=== PATIENT | male | born 1970 | race Caucasian/White ===

== ENCOUNTER 2020-10-09 16:24 | Inpatient (IN) | payer SELFPAY ==
[~2020-10-09] VITALS: Ht 177.8 cm; Wt 93.0 kg
[2020-10-09 16:43] VITALS: BP 116/79
--- NOTE | 2020-10-09 18:10 | NUR ---
PT TAKEN TO BED 2.
--- NOTE | 2020-10-09 18:15 | NUR ---
49/M presents to ED with c/o cough and chest discomfort. Per patient he tested positive for covid 1 week ago and has had worsening cough, chest discomfort and c/o sob with exertion. Patient denies pain at this time but states pain occurs with cough. Patient reports intermittent fevers at home, reports taking Tylenol at home with mild relief. Patient denies being vaccinated against COVID-19. Denies nausea or vomiting. Denies urinary symptoms.
--- NOTE | 2020-10-09 18:30 | NUR ---
Labs and RSV and Novel swabs collected and handed to [facility]orer stores.
[2020-10-09] MEDS ORDERED: ACETAMINOPHEN EXTRA STRENGTH 500 MG TAB ONE (19:00)
[2020-10-09 19:03] LABS: BASOPHILS % (AUTO) 0.4 % (0.0-2.0); EOSINOPHILS # (AUTO) 0.1 K/uL (0-0.4); EOSINOPHILS % (AUTO) 1.2 % (0.0-4.0); LYMPHOCYTES # (AUTO) 0.8 K/uL (2.0-11.5); LYMPHOCYTES % (AUTO) 8.1 % (20.5-51.1); MEAN CORPUSCULAR HEMOGLOBIN 30 pg (27-31); MEAN CORPUSCULAR HGB CONC 34 g/dL (33-37); MEAN CORPUSCULAR VOLUME 86.2 fL (80-94); MONOCYTES # (AUTO) 1.1 K/uL (0.8-1.0); NEUTROPHILS # (AUTO) 7.8 K/uL (1.8-7.7); NEUTROPHILS % (AUTO) 79.3 % (42.2-75.2); PLATELET COUNT (AUTO) 490 K/uL (140-450); RED BLOOD CELL COUNT(AUTO) 4.75 MIL/uL (4.20-6.10); RED CELL DISTRIBUTION WIDTH 13.4 % (11.6-13.7); WHITE BLOOD COUNT (AUTO) 9.8 K/uL (4.8-10.8)
--- NOTE | 2020-10-09 19:04 | NUR ---
LIZY SPAULDING BROTHER [phone] CALLED REQUESTING UPDATE
[2020-10-09] MEDS ORDERED: ACETAMINOPHEN EXTRA STRENGTH 500 MG TAB PO ONE (19:05)
--- NOTE | 2020-10-09 19:16 | NUR ---
Nilsa swab collected and walked to lab.
[2020-10-09] MEDS ORDERED: DEXAMETHASONE 10 MG/ML VIAL IVP ONE (19:20)
--- NOTE | 2020-10-09 19:22 | NUR ---
Pt report given to Page. Transfer of care at this time.
[2020-10-09 19:23] LABS: ALBUMIN 2.8 g/dL (3.4-5.0); ANION GAP 12.7 (8-16); CARBON DIOXIDE 26.5 mmol/L (21-32); POTASSIUM 4.2 mmol/L (3.5-5.1); TOTAL BILIRUBIN 0.7 mg/dL (0.0-1.0)
[2020-10-09 19:24] LABS: PROTHROMBIN TIME 10.1 secs (10.8-13.4)
[2020-10-09 19:29] LABS: LACTATE DEHYDROGENASE 400 U/L (85-227)
[2020-10-09 19:41] LABS: FIBRINOGEN > 750 mg/dL (200-400)
[2020-10-09 19:48] LABS: C-REACTIVE PROTEIN QUANT 29.4 mg/dL (0.0-0.9)
[2020-10-09 19:55] LABS: D-DIMER 1860 ng/ml (0-400)
[2020-10-09] MEDS ORDERED: COMMUNICATION ORDER MC SCH (20:40)
[2020-10-09] MEDS ORDERED: ACETAMINOPHEN 325 MG TAB PO PRN (20:40)
[2020-10-09] MEDS ORDERED: ZOLPIDEM 5 MG TAB PO PRN (20:40)
[2020-10-09] MEDS ORDERED: ONDANSETRON 4 MG/2 ML VIAL IM/IVP PRN (20:40)
[2020-10-09] MEDS ORDERED: HYDROcodone/APAP 7.5/325 MG 1 TAB PO PRN (20:40)
[2020-10-09] MEDS ORDERED: ALBUTEROL HFA MDI 90 MCG/ACTUATION 8 GM INH PRN (20:40)
[2020-10-09] MEDS ORDERED: guaiFENesin DM 200/20 MG-10 ML 10 ML UDC PO PRN (20:40)
[2020-10-09] MEDS: NACL 0.9% 1,000 ML IV SCH (20:40)
[2020-10-09] MEDS ORDERED: DOCUSATE SODIUM 100 MG GELCAP PO PRN (20:40)
[2020-10-09] MEDS ORDERED: POTASSIUM CHLORIDE 10 MEQ TABER PO PRN (20:40)
[2020-10-09] MEDS ORDERED: NITROGLYCERIN 0.4 MG TAB SL PRN (20:45)
[2020-10-09] MEDS ORDERED: AZITHROMYCIN 250 MG TAB PO SCH (21:00)
--- NOTE | 2020-10-09 21:45 | NUR ---
PATIENTS SON CALLED AND WAS UPDATED REGARDING FATHERS CONDITION, AND ADMISSION.
[2020-10-09 21:47] LABS: CHOL/HDL RATIO 3.6 (1-4.5); FREE T4 (FREE THYROXINE) 1.16 ng/dL (0.76-1.46); MAGNESIUM 2.1 mg/dL (1.8-2.4); PHOSPHORUS 2.6 mg/dL (2.5-4.9); THYROID STIMULATING HORMONE 0.73 uIU/mL (0.34-3.74)
--- NOTE | 2020-10-09 22:00 | NUR ---
MEDICATED PER ADMITTING DR. ORDERS, TOLERATED WELL.
[2020-10-09] MEDS ORDERED: cefTRIAXone 1,000 MG VIAL ONE (22:38)
[2020-10-09] MEDS ORDERED: DEXAMETHASONE 10 MG/ML VIAL ONE (22:39)
[2020-10-09 23:11] LABS: APPEARANCE,URINE CLEAR (CLEAR); BILIRUBIN,URINE NEGATIVE (NEGATIVE); BLOOD, URINE NEGATIVE (NEGATIVE); COLOR,URINE YELLOW (YELLOW); LEUKOCYTE ESTERASE ,URINE NEGATIVE (NEGATIVE); NITRITE, URINE NEGATIVE (NEGATIVE); UGLUCOSE NEGATIVE (NEGATIVE)
[2020-10-09] MEDS: METOPROLOL 25 MG TAB PO SCH (23:11)
[2020-10-09 23:32] LABS: BARBITURATE, URINE NEGATIVE ng/ml (NEG <=200); BENZODIAZEPINE, URINE NEGATIVE ng/mL (NEG <=200); CANNABINOID, URINE NEGATIVE ng/mL (NEG <=50); COCAINE, URINE NEGATIVE ng/mL (NEG <=300); OPIATE, URINE NEGATIVE ng/mL (NEG <=2000); PHENCYCLIDINE SCREEN,URINE NEGATIVE ng/mL (NEG <=25)
--- NOTE | 2020-10-10 00:43 | NUR ---
Patient appears to be resting comfortably in bed. Vital Signs within normal limits. Respirations even and unlabored.
--- NOTE | 2020-10-10 02:00 | NUR ---
sons kept on calling , updated fathers condition, admission.
--- NOTE | 2020-10-10 06:02 | NUR ---
patient sleep well, and comfortable, sao2 maintained 96-98%, no respiratory distress noted, up and about.
[2020-10-10 06:33] LABS: ANION GAP 13.9 (8-16); BASOPHILS % (AUTO) 0.2 % (0.0-2.0); CARBON DIOXIDE 24.6 mmol/L (21-32); CREATININE 0.8 mg/dL (0.6-1.3); EOSINOPHILS % (AUTO) 0.2 % (0.0-4.0); HEMATOCRIT 37.6 % (36-52); HEMOGLOBIN 12.8 g/dL (12.0-18.0); LYMPHOCYTES # (AUTO) 0.8 K/uL (2.0-11.5); LYMPHOCYTES % (AUTO) 9.4 % (20.5-51.1); MEAN CORPUSCULAR HEMOGLOBIN 29 pg (27-31); MEAN CORPUSCULAR HGB CONC 34 g/dL (33-37); MEAN CORPUSCULAR VOLUME 86.1 fL (80-94); MONOCYTES # (AUTO) 0.3 K/uL (0.8-1.0); MONOCYTES % (AUTO) 3.3 % (1.7-9.3); NEUTROPHILS # (AUTO) 7.2 K/uL (1.8-7.7); NEUTROPHILS % (AUTO) 86.9 % (42.2-75.2); PLATELET COUNT (AUTO) 482 K/uL (140-450); POTASSIUM 4.5 mmol/L (3.5-5.1); RED BLOOD CELL COUNT(AUTO) 4.37 MIL/uL (4.20-6.10); RED CELL DISTRIBUTION WIDTH 13.3 % (11.6-13.7); WHITE BLOOD COUNT (AUTO) 8.3 K/uL (4.8-10.8)
--- NOTE | 2020-10-10 07:15 | NUR ---
report and continuation of care received from Eric celis.
--- NOTE | 2020-10-10 07:50 | NUR ---
Contreras leavitt in [facility] - 10/10/20 at 0813 by [email or web address] ADMINISTERED BENEDRYL ORDERED. PT BEGAN DRINKING ORAL CONTRAST AT 0750. LYNNETTE FROM CT NOTIFIED. WILL MONITOR CLOSELY.
--- NOTE | 2020-10-10 07:50 | NUR ---
PT OFF UNIT
--- NOTE | 2020-10-10 08:15 | NUR ---
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
--- NOTE | 2020-10-10 08:18 | NUR ---
ALICE AND CALLED REGARDING UPDATE [phone]
--- NOTE | 2020-10-10 09:30 | NUR ---
PT REQUESTED AND GIVEN URINAL.
--- NOTE | 2020-10-10 09:54 | NUR ---
PT GIVEN PITCHER OF WATER.
--- NOTE | 2020-10-10 09:58 | NUR ---
PATIENT HAS BEEN SCREENED AND CATEGORIZED MODERATE NUTRITION RISK. PATIENT WILL BE SEEN WITHIN 3-5 DAYS OF ADMISSION. 10/12/20 10/14/[address]
[2020-10-10] MEDS ORDERED: CRUSHER, PILL MC ONE ×2 (10:00→22:20)
[2020-10-10] MEDS: ECOTRIN 81 MG TABEC PO SCH (10:27)
[2020-10-10] MEDS: METOPROLOL 25 MG TAB PO SCH ×2 (10:28→21:00)
[2020-10-10] MEDS: ASCORBIC ACID 500 MG TAB PO SCH (10:29)
[2020-10-10] MEDS: PANTOPRAZOLE 40 MG TABEC PO SCH (10:29)
[2020-10-10] MEDS: ZINC SULF 220 MG CAP PO SCH (10:30)
[2020-10-10] MEDS: lisinopriL 5 MG TAB PO SCH (10:30)
--- NOTE | 2020-10-10 10:40 | NUR ---
PT AMBULATED TO BATHROOM STEADY GAIT.
[2020-10-10] MEDS ORDERED: remdesivir CLINICAL MONITORING 1 EA MISC MC PRN (12:00)
[2020-10-10] MEDS ORDERED: REMDESIVIR. 200 MG in NACL 0.9% 100 ML IV ONE (12:00)
--- NOTE | 2020-10-10 12:27 | NUR ---
PATIENT IN BED AWAKE AND ALERT, VSS, RR EVEN AND UNLABORED.
[2020-10-10] MEDS: NACL 0.9% 1,000 ML IV SCH (13:22)
--- NOTE | 2020-10-10 13:27 | NUR ---
PT REQUESTING TO LEAVE AMA. DR. PHILLIPS MADE AWARE. PRIMARY RN SPEAKING WITH PATIENT TO CONFIRM.
--- NOTE | 2020-10-10 13:54 | NUR ---
DR PHILLIPS AT BEDSIDE FOR EXPLAINING AMA. PT CHANGED MIND AND WILL STAY.
--- NOTE | 2020-10-10 13:54 | NUR ---
Contreras leavitt in ED - 10/10/[address] at [address] [facility] [address] PHILLIPS AT BEDSIDE SPEAKING WITH PATIENT. AMA FORM HAS BEEN SIGNED BY PATIENT.
--- NOTE | 2020-10-10 13:55 | NUR ---
Contreras leavitt in [facility] - 10/10/[address] at [address] [facility] PT AGREED TO STAY INPATIENT AFTER SPEAKING TO DR. PHILLIPS.
--- NOTE | 2020-10-10 14:20 | NUR ---
PATIENT GIVEN SNACK LUNCH.
--- NOTE | 2020-10-10 15:35 | NUR ---
SPOKE WITH DAUGHTER REGARDING PATIENT STATUS.
[2020-10-10] MEDS ORDERED: ATORVASTATIN 20 MG TAB PO SCH (17:00)
--- NOTE | 2020-10-10 20:40 | NUR ---
Patient will be admitted to care of DR. PHILLIPS. Admited to TELEMMETRY. Will go to room 117. Belongings list completed. Report to EDDA SAXENA.
--- NOTE | 2020-10-10 21:05 | NUR ---
ADMITTED TO [facility] A MALE PATIENT FROM ER UNDER THE CARE OF DR. PHILLIPS WITH THE CC: OF COUGH AND CHEST DISCOMFORT. DX: HYPOXIA , RESPIRATORY DISTRESS. AAOX4, NO ACUTE RESPIRATORY DISTRESS NOTED. RESPIRATION EVEN UNLABORED. MRSA NARES SCREENING DONE. ORIENTED TO ROOM, CALL LIGHT, STAFF. IVF STARTED. SCHEDULED MEDICATIONS GIVEN ORDERED. WILL CONTINUE TO MONITOR.
[2020-10-11 04:00] VITALS: BP 131/84
[2020-10-11] MEDS: NACL 0.9% 1,000 ML IV SCH (06:00)
[2020-10-11 07:43] LABS: BASOPHILS % (AUTO) 0.3 % (0.0-2.0); HEMATOCRIT 38.2 % (36-52); HEMOGLOBIN 12.9 g/dL (12.0-18.0); LYMPHOCYTES # (AUTO) 1.2 K/uL (2.0-11.5); LYMPHOCYTES % (AUTO) 7.9 % (20.5-51.1); MEAN CORPUSCULAR HEMOGLOBIN 29 pg (27-31); MEAN CORPUSCULAR HGB CONC 34 g/dL (33-37); MEAN CORPUSCULAR VOLUME 85.9 fL (80-94); MONOCYTES # (AUTO) 0.9 K/uL (0.8-1.0); NEUTROPHILS # (AUTO) 13.2 K/uL (1.8-7.7); NEUTROPHILS % (AUTO) 85.8 % (42.2-75.2); PLATELET COUNT (AUTO) 602 K/uL (140-450); RED BLOOD CELL COUNT(AUTO) 4.45 MIL/uL (4.20-6.10); RED CELL DISTRIBUTION WIDTH 13.3 % (11.6-13.7); WHITE BLOOD COUNT (AUTO) 15.3 K/uL (4.8-10.8)
[2020-10-11 07:47] LABS: ALBUMIN 2.4 g/dL (3.4-5.0); ANION GAP 12.1 (8-16); CREATININE 0.8 mg/dL (0.6-1.3); POTASSIUM 4.1 mmol/L (3.5-5.1); TOTAL BILIRUBIN 0.4 mg/dL (0.0-1.0)
[2020-10-11 08:00] VITALS: BP 120/78
[2020-10-11] MEDS: ECOTRIN 81 MG TABEC PO SCH (10:00)
[2020-10-11] MEDS: ASCORBIC ACID 500 MG TAB PO SCH (10:00)
[2020-10-11] MEDS: lisinopriL 5 MG TAB PO SCH (10:01)
[2020-10-11] MEDS: ZINC SULF 220 MG CAP PO SCH (10:01)
[2020-10-11] MEDS: METOPROLOL 25 MG TAB PO SCH (10:01)
[2020-10-11] MEDS: PANTOPRAZOLE 40 MG TABEC PO SCH (10:01)
[2020-10-11] MEDS ORDERED: ASPI-1205 PO (10:24)
[2020-10-11] MEDS ORDERED: AZIT250T3 PO (10:24)
[2020-10-11] MEDS ORDERED: DEC1 PO (10:24)
[2020-10-11] MEDS ORDERED: GUAI-646 PO (10:24)
[2020-10-11] MEDS ORDERED: CEPH250C16 PO (10:24)
--- NOTE | 2020-10-11 11:43 | NUR ---
Patient assessed for hypoxemia. currently on room air and oxygen level at 92 % on room air. when patient stood up and walked within the room, his oxygen level dropped to 84%. Notified Physician and patient needs oxygen at Discharge.
--- NOTE | 2020-10-11 11:44 | NUR ---
DC PLANNING: CM SPOKE WITH THE PATIENT BY PHONE REGARDING THE ORDER FOR HOME O2. PATIENT IS CURRENTLY UNINSURED AND UNEMPLOYED. HE STATES THAT HIS UNEMPLOYMENT CLAIM HAS BEEN SUBMITTED AND THAT HE WILL HAVE FUNDS NEXT WEEK BUT DOES NOT FEEL THAT HE WILL NEED O2 AT THIS TIME. CM OFFERED TO SET UP OXYGEN AND HAVE THE COMPANY CALL HIM NEXT WEEK BUT HE DECLINED. HE STATES THAT HE HAS BEEN GIVEN INSTRUCTIONS ON RESTING WHEN HE FEELS SHORT OF BREATH AND ALSO THAT HE HAS BEEN GIVEN EXERCISES TO HELP WITH HIS BREATHING. THE PATIENT LIVES IN A HOUSE WITH HIS AND CHILDREN AND HAS NO HISTORY OF HOME HEALTH OR DME. HE STATES THAT HE IS COMFORTABLE DISCHARGING WITHOUT OXYGEN AND FEELS THAT HE WILL BE "OK" WITHOUT IT. CM ENDORSED ABOVE TO PATIENTS [address] AND ALSO SPOKE WITH DR. PHILLIPS. DR PHILLIPS STATES THAT THE PATIENT SHOULD BE DC'D AND THAT HE HAS SPOKEN WITH JAD TO DO THIS. DR PHILLIPS IS COMFORTABLE WITH THE PATIENT DC'ING WITHOUT O2. CM WILL FOLLOW NEEDED.
[2020-10-11 12:00] VITALS: BP 133/76
[2020-10-11] MEDS ORDERED: REMDESIVIR. 100 MG in NACL 0.9% 100 ML IV SCH (12:00)
[2020-10-11 12:08] LABS: T4 (THYROXINE) 10.3 ug/dL (4.5-12.0)
[2020-10-11 12:31] VITALS: BP 120/78
--- NOTE | 2020-10-11 12:54 | NUR ---
Patient discharged home and was given education on medications, disease process and all resources, information on covid-19. Patient verbalized understanding.
== END 2020-10-11 14:20 | disposition home or self-care (01) | DRG 177 ==
LOC: MED 16:24 → MTU 20:40
PROVIDERS: ADMIT Family Medicine; ATTEND Family Medicine
PROC: XW033E5 Introduction of Remdesivir Anti-infective into Peripheral Vein, Percutaneous Approach, New Technology Group 5 (ICD-10-PCS; principal; 2020-10-10)
DX: U07.1 COVID-19 (principal); E43 Unspecified severe protein-calorie malnutrition; J12.82 Pneumonia due to coronavirus disease 2019; J96.01 Acute respiratory failure with hypoxia; D68.59 Other primary thrombophilia; E11.9 Type 2 diabetes mellitus without complications; I10 Essential (primary) hypertension; R74.01 Elevation of levels of liver transaminase levels; R79.89 Other specified abnormal findings of blood chemistry; Z68.29 Body mass index [BMI] 29.0-29.9, adult
CPT/HCPCS: 36415; 36600; 71045; 80048; 80053; 80305; 81003; 82150; 82550; 82728; 82803; 83036; 83605; 83615; 83690; 83735; 83880; 84100; 84436; 84439; 84443; 84479; 84484; 85025; 85379; 85384; 85610; 85651; 85730; 86140; 86886; 86900; 86901; 87040; 87081; 87420; 93005; 96365; 96375; 99291; J0696; J1100; J1644; J7060; U0003